=== PATIENT | male | born 1970 | race Caucasian/White ===

== ENCOUNTER 2019-07-04 00:33 | Observation (INO) | payer SELFPAY ==
[~2019-07-04] VITALS: Ht 172.7 cm; Wt 72.4 kg
[2019-07-04] MEDS ORDERED: MULTIVITAMINS- 12 INJECTION 10 ML, FOLIC ACID MDV 5 MG, THIAMINE HCL INJ 100 MG in SODI... IV ONE (00:45)
[2019-07-04] MEDS ORDERED: SODIUM CHLORIDE 0.9% 1000ML 1,000 ML IV ONE (01:00)
[2019-07-04] MEDS ORDERED: CEFTRIAXONE SOD 500 MG VIAL IM ONE (01:15)
[2019-07-04 01:23] LABS: BASOPHILS % 0.1 % (0.0-1.0); EOSINOPHILS # (AUTO) 0.1 (0.0-0.4); EOSINOPHILS % 0.4 % (0.0-6.0); HEMATOCRIT 41.4 % (38.2-49.6); HEMOGLOBIN 15.4 g/dL (14.0-18.0); LYMPHOCYTES # (AUTO) 2.4 (1.0-3.2); LYMPHOCYTES % 17.1 % (18.0-39.1); MEAN CORPUSCULAR HGB CONC 37.2 g/dL (31-35); MEAN CORPUSCULAR VOLUME 88.7 fL (81-99); MONOCYTES # (AUTO) 1.3 (0.2-0.8); MONOCYTES % 9.2 % (4.4-11.3); NEUTROPHILS # (AUTO) 10.1 (2.1-6.9); NEUTROPHILS % 72.7 % (38.7-80.0); PLATELET COUNT 212 x10e3/uL (140-360); RED BLOOD COUNT 4.67 x10e6/uL (4.3-5.7)
[2019-07-04 01:45] LABS: PARTIAL THROMBOPLASTIN TIME 23.5 seconds (23.8-35.5); PROTHROMBIN TIME 13.4 seconds (11.9-14.5)
[2019-07-04 01:50] LABS: INFLUENZAE A&B ANTIGEN (RAPID) NEGATIVE (NEGATIVE); STREPTOCOCCUS GRP A ANTIGEN POSITIVE (NEGATIVE)
[2019-07-04 01:52] LABS: ALANINE AMINOTRANSFERASE 68 IU/L (0-55); ALBUMIN 3.5 g/dL (3.5-5.0); ALBUMIN/GLOBULIN RATIO 1.5 (0.8-2.0); ALKALINE PHOSPHATASE 54 IU/L (40-150); ANION GAP 19.4 mmol/L (8-16); BLOOD UREA NITROGEN 13 mg/dL (7-26); BUN/CREATININE RATIO 12 (6-25); CALCIUM 8.5 mg/dL (8.4-10.2); CARBON DIOXIDE 29 mmol/L (22-29); CHLORIDE 86 mmol/L (98-107); CREATINE KINASE 229 IU/L (30-200); EST GLOMERULAR FILTRATION RATE > 60 ML/MIN (60-); GLUCOSE 111 mg/dL (74-118); POTASSIUM 2.4 mmol/L (3.5-5.1); SODIUM 132 mmol/L (136-145)
[2019-07-04] MEDS ORDERED: POTASSIUM CHLORIDE 20MEQ/100ML 100 ML IV STA (01:52)
[2019-07-04] MEDS ORDERED: POTASSIUM CHLORIDE 20 MEQ TAB CR PO STA (01:52)
--- NOTE | 2019-07-04 01:56 | Diagnostic Imaging Report ---
Examination: CT head without contrast Clinical Indication: Fall with head injury. Technique: Transaxial noncontrast images from the skull base through the vertex were obtained. Sagittal and coronal reformatted images were done. Dose modulation, iterative reconstruction, and/or weight based adjustment of the mA/kV was utilized to reduce the radiation dose to as low as reasonably achievable. Comparison: None. Findings: Scalp: No abnormalities. Bones: Intact. No fractures. No blastic or lytic lesions. Brain sulci: Appropriate for patient's age. Ventricles: Normal in size and configuration. No hydrocephalus. Extra-axial space: No abnormalities. Parenchyma: No masses, hemorrhage, or acute or chronic cortical based vascular insults. Suprasellar region: No abnormalities. Craniocervical junction: The foramen magnum is patent. No Chiari one malformation. Impression: No intracranial abnormality. Signed by: Dr. Zahida Baker M.D. on 07/04/2019 1:53 AM
[2019-07-04] MEDS ORDERED: ONDANSETRON HCL INJ 2MG/ML 2ML 2 MG/ML VIAL IV STA (01:57)
--- NOTE | 2019-07-04 01:59 | Diagnostic Imaging Report ---
Examination: CT CERVICAL SPINE WO CONTRAST HISTORY:Neck injury after fall. COMPARISON:None. TECHNIQUE: Multidetector helical axial images were obtained without contrast from the foramen magnum to T1. Coronal and sagittal reformatted images were done. Bone and soft tissue windows were evaluated. Dose modulation, iterative reconstruction, and/or weight based adjustment of the mA/kV was utilized to reduce the radiation dose to as low as reasonably achievable. FINDINGS: Alignment:Normal alignment and lordosis. Vertebrae: Normal height and density. No acute fracture, infection or neoplasm. Disc space heights: Normal height. Caliber of spinal canal: Developmentally normal. Posterior fossa and craniocervical junction: Foramen magnum patent. No Chiari 1 malformation. Soft tissues: No abnormality. Degenerative changes: Severe right foraminal narrowing at C4-C5. Severe right facet arthropathy at C2-C3 No disc bulge/ herniation or canal stenosis. Visualized lung apices: No abnormalities. IMPRESSION: No acute abnormalities. Signed by: Dr. Zahida Baker M.D. on 07/04/2019 1:56 AM
--- NOTE | 2019-07-04 02:14 | Diagnostic Imaging Report ---
EXAMINATION: CHEST SINGLE (PORTABLE) INDICATION: Status post fall. COMPARISON: None FINDINGS: TUBES and LINES: None. LUNGS: Lungs are well inflated. Lungs are clear. There is no evidence of pneumonia or pulmonary edema. PLEURA: No pleural effusion or pneumothorax. HEART AND MEDIASTINUM: The cardiomediastinal silhouette is unremarkable. BONES AND SOFT TISSUES: There is marked deformity of the posterior left left sixth rib consistent with comminuted fracture of uncertain age. There is also evidence of remote healed fracture of the posterolateral left femoral rib. Abnormal appearance of the posterior left ninth and 10th ribs may reflect artifact. UPPER ABDOMEN: No free air under the diaphragm. IMPRESSION: Comminuted fracture of the left posterior sixth rib of uncertain age. Correlate for mid left posterior thoracic pain/tenderness. Signed by: Dr. Yaron Forbes M.D. on 07/04/2019 2:11 AM
[2019-07-04] MEDS ORDERED: PENICILLIN G BENZATHINE LA 1.2 MU TBX IM STA (02:36)
[2019-07-04] MEDS ORDERED: SODIUM CHLORIDE 0.9% 250ML 250 ML ONE ×2 (02:46→17:17)
[2019-07-04] MEDS ORDERED: ONDANSETRON HCL INJ 2MG/ML 2ML 2 MG/ML VIAL IV PRN (04:30)
[2019-07-04] MEDS ORDERED: KCL 20MEQ/.9 SOD CHL 1,000 ML IV ONE (04:30)
--- OUTSIDE RECORDS SUMMARY | 2019-07-04 04:33 | XMS REPORT ---
Author Author [facility] Address Unknown Phone Unavailable Care Team Providers Care Clinical Microbiologist Name Role Phone Blu MTZ Unavailable Unavailable Problems This patient has no known problems. Allergies, Adverse Reactions, Alerts This patient has no known allergies or adverse reactions. Medications This patient has no known medications. Results Test Description Test Time Test Comments Text Results Atomic Results Result Comments CHEST SINGLE (PORTABLE) 2019-07-04 02:03:00 [facility] [address] [address] Patient Name: RUBIO LA MR #: [id number] : 1970 Age/Sex: 48/M Req #: [id number] Adm Physician: Ordered by: PRANAV MTZ MD Report #: [id number] Location: ER Room/Bed: Procedure: [id number] DX/CHEST SINGLE (PORTABLE) Exam Date: Exam Time: REPORT STATUS: Signed EXAMINATION: CHEST SINGLE (PORTABLE) INDICATION: Status post fall. COMPARISON: None FINDINGS: TUBES and LINES: None. LUNGS: Lungs are well inflated. Lungs are clear. There is no evidence of pneumonia or pulmonary edema. PLEURA: No pleural effusion or pneumothorax. HEART AND MEDIASTINUM: The cardiomediastinal silhouette is unremarkable. BONES AND SOFT TISSUES: There is marked deformity of the posterior left left sixth rib consistent with comminuted fracture of uncertain age. There is also evidence of remote healed fracture of the posterolateral left femoral rib. Abnormal appearance of the posterior left ninth and 10th ribs may reflect artifact. UPPER ABDOMEN: No free air under the diaphragm. IMPRESSION: Comminuted fracture of the left posterior sixth rib of uncertain age. Correlate for mid left posterior thoracic pain/tenderness. Signed by: Dr. Yaron Thakur M.D. on 07/04/2019 2:11 AM Dictated By: CHELSIE THAKUR MD, MD 0 Transcribed By: ELZBIETA on 07/04/19210 COPY TO: PRANAV MTZ MD CT CERVICAL SPINE WO 2019-07-04 01:53:00 [address] [place] [address] Patient Name: RUBIO LA MR #: [id number] : 1970 Age/Sex: 48/M Req #: [id number] Adm Physician: Ordered by: PRANAV MTZ MD Report #: [id number] Location: ER Room/Bed: Procedure: [id number] CT/CT CERVICAL SPINE WO Exam Date: Exam Time: REPORT STATUS: Signed Examination: CT CERVICAL SPINE WO CONTRAST HISTORY:Neck injury after fall. COMPARISON:None. TECHNIQUE: Multidetector helical axial images were obtained without contrast from the foramen magnum to T1. Coronal and sagittal reformatted images were done. Bone and soft tissue windows were evaluated. Dose modulation, iterative reconstruction, and/or weight based adjustment of the mA/kV was utilized to reduce the radiation dose to as low as reasonably achievable. FINDINGS: Alignment:Normal alignment and lordosis. Vertebrae: Normal height and density. No acute fracture, infection or neoplasm. Disc space heights: Normal height. Caliber of spinal canal: Developmentally normal. Posterior fossa and craniocervical junction: Foramen magnum patent. No Chiari 1 malformation. Soft tissues: No abnormality. Degenerative changes: Severe right foraminal narrowing at C4-C5. Severe right facet arthropathy at C2-C3 No disc bulge/ herniation or canal stenosis. Visualized lung apices: No abnormalities. IMPRESSION: No acute abnormalities. Signed by: Dr. Zahida Baker M.D. on 07/04/2019 1:56 AM Dictated By: ZAHIDA ALVARADO MD 5 Transcribed By: ELZBIETA on 07/04/19155 COPY TO: PRANAV MTZ MD CT BRAIN WO 2019-07-04 01:52:00 [place] [address] Patient Name: RUBIO LA MR #: [id number] : 1970 Age/Sex: 48/M Req #: [id number] Adm Physician: Ordered by: PRANAV MTZ MD Report #: [id number] Location: ER Room/Bed: Procedure: [id number] CT/CT BRAIN WO Exam Date: Exam Time: REPORT STATUS: Signed Examination: CT head without contrast Clinical Indication: Fall with head injury. Technique: Transaxial noncontrast images from the skull base through the vertex were obtained. Sagittal and coronal reformatted images were done. Dose modulation, iterative reconstruction, and/or weight based adjustment of the mA/kV was utilized to reduce the radiation dose to as low as reasonably achievable. Comparison: None. Findings: Scalp: No abnormalities. Bones: Intact. No fractures. No blastic or lytic lesions. Brain sulci: Appropriate for patient's age. Ventricles: Normal in size and configuration. No hydrocephalus. Extra-axial space: No abnormalities. Parenchyma: No masses, hemorrhage, or acute or chronic cortical based vascular insults. Suprasellar region: No abnormalities. Craniocervical junction: The foramen magnum is patent. No Chiari one malformation. Impression: No intracranial abnormality. Signed by: Dr. Zahida Baker M.D. on 07/04/2019 1:53 AM Dictated By: ZAHIDA ALVARADO MD 2 Transcribed By: ELZBIETA on 07/04/19152 COPY TO: PRANAV MTZ MD
[2019-07-04] MEDS: CHLORDIAZEPOXIDE HCL 25 MG CAP PO SCH ×4 (05:02→23:26)
[2019-07-04] MEDS: CEFTRIAXONE SOD 1 GM VIAL IV SCH (05:02)
[2019-07-04 05:46] LABS: CLARITY,URINE CLEAR (CLEAR); COLOR,URINE YELLOW (YELLOW); LEUKOCYTE ESTERASE ,URINE NEGATIVE (NEGATIVE)
[2019-07-04 05:47] LABS: AMPHETAMINES SCREEN,URINE NEGATIVE (NEGATIVE); BENZODIAZEPINES SCREEN,URINE NEGATIVE (NEGATIVE); KETONES,URINE NEGATIVE (NEGATIVE); NITRITE,URINE NEGATIVE (NEGATIVE); PHENCYCLIDINE SCREEN,URINE NEGATIVE (NEGATIVE); PROTEIN,URINE DIPSTICK 1+ (NEGATIVE); URINE UROBILINOGEN 0.2 mg/dL (0.2 - 1)
[2019-07-04 05:48] LABS: BACTERIA,URINE RARE /HPF; BILIRUBIN,URINE NEGATIVE (NEGATIVE); EPITHELIAL CELLS,URINE FEW /LPF; RBC,URINE 0-5 /HPF (0-5); WBC,URINE (MAN) 0-5 /HPF (0-5)
--- NOTE | 2019-07-04 06:37 | History and Physical ---
REASON FOR ADMISSION: 1. Alcohol abuse. 2. Possible delirium tremens. 3. Hypokalemia. 4. Dehydration. 5. Leukocytosis. 6. Strep throat. HISTORY OF PRESENT ILLNESS: The patient is a 48-year-old gentleman, long-time daily ethanol drinker, who decided about four days ago to quit due to the upcoming job, who then presents with a few day history of nausea, vomiting, decreased p.o. intake, and sore throat. He was noted to have a fall, as he was throwing up and therefore he presented to the emergency room, where he was found to be hypokalemic, dehydrated, and positive for strep throat, so he has been admitted for further evaluation and treatment. PAST MEDICAL HISTORY: Alcohol abuse. MEDICATIONS: See JUL. ALLERGIES: NONE. SOCIAL HISTORY: Daily drinker. Denies IV drug abuse. . FAMILY HISTORY: Alcohol abuse. PHYSICAL EXAMINATION: VITAL SIGNS: Temperature 98.6, pulse is 96, blood pressure 136/70, sats 96% on room air. GENERAL: He is in no apparent distress, lying in bed. HEENT: He has a small abrasion above his nose. NECK: Supple. CARDIOVASCULAR: Regular rate and rhythm. LUNGS: Clear to auscultation bilaterally. ABDOMEN: Good bowel sounds. Soft, nontender. No peritoneal signs. EXTREMITIES: No clubbing, cyanosis. NEUROLOGIC: He moves all extremities x4. He is alert, oriented x3. Does not show any evidence of delirium tremens at this time. ASSESSMENT AND PLAN: 1. Alcohol abuse. The patient states his last drink was four days ago, so high risk obviously for delirium tremens, so he is on Librium. He is on IV fluids. He is on a banana bag. 2. Hypokalemia. We will continue to monitor as we replace. 3. Dehydration. Continue with IV fluids. 4. Leukocytosis. We will continue to monitor. 5. Elevated liver function tests. We will also continue to monitor. 6. Strep throat. We will continue with Rocephin. Please see hospital chart for details. MD NNEKA Mccollum/CHAGO /[id number]
[2019-07-04 08:00] VITALS: BP 130/93
[2019-07-04] MEDS: METOPROLOL TARTRATE 25 MG TAB PO SCH ×3 (08:00→20:55)
[2019-07-04] MEDS: PANTOPRAZOLE 40 MG 10ML VIAL IV SCH (09:57)
[2019-07-04 12:00] VITALS: BP 133/85
[2019-07-04 13:55] LABS: BASOPHILS % 0.1 % (0.0-1.0); EOSINOPHILS # (AUTO) 0.1 (0.0-0.4); EOSINOPHILS % 0.6 % (0.0-6.0); HEMOGLOBIN 13.3 g/dL (14.0-18.0); LYMPHOCYTES # (AUTO) 2.2 (1.0-3.2); LYMPHOCYTES % 15.1 % (18.0-39.1); MEAN CORPUSCULAR HEMOGLOBIN 32.6 pg (28-32); MEAN CORPUSCULAR VOLUME 93.1 fL (81-99); MONOCYTES # (AUTO) 1.1 (0.2-0.8); MONOCYTES % 7.8 % (4.4-11.3); NEUTROPHILS # (AUTO) 11.2 (2.1-6.9); PLATELET COUNT 178 x10e3/uL (140-360); RED BLOOD COUNT 4.08 x10e6/uL (4.3-5.7); RED CELL DISTRIBUTION WIDTH 14.4 % (11.7-14.4)
[2019-07-04] MEDS: MAGNESIUM SULF 1GRAM/DEXTROSE 100 ML IV SCH ×4 (14:16→20:49)
[2019-07-04 14:22] LABS: ALANINE AMINOTRANSFERASE 61 IU/L (0-55); ALBUMIN 3.1 g/dL (3.5-5.0); ALBUMIN/GLOBULIN RATIO 1.3 (0.8-2.0); ALKALINE PHOSPHATASE 44 IU/L (40-150); ANION GAP 12.3 mmol/L (8-16); BLOOD UREA NITROGEN 12 mg/dL (7-26); BUN/CREATININE RATIO 14 (6-25); CALCIUM 7.6 mg/dL (8.4-10.2); CARBON DIOXIDE 27 mmol/L (22-29); CHLORIDE 98 mmol/L (98-107); CREATINE KINASE 188 IU/L (30-200); CREATININE, SERUM 0.85 mg/dL (0.72-1.25); EST GLOMERULAR FILTRATION RATE > 60 ML/MIN (60-); GLUCOSE 98 mg/dL (74-118); POTASSIUM 3.3 mmol/L (3.5-5.1); SODIUM 134 mmol/L (136-145)
[2019-07-04 16:00] VITALS: BP 111/84
[2019-07-04] MEDS ORDERED: POTASSIUM CHLORIDE 20 MEQ TAB CR PO NR ×3 (16:30→19:00)
--- NOTE | 2019-07-04 18:50 | Consultation ---
DATE OF CONSULTATION: 07/04/2019 Cardiac Consultation/Short Note HISTORY OF PRESENT ILLNESS: This is a 48-year-old man with a history of alcohol abuse, who presented after syncopal episode and fall after being intoxicated. No chest pain, palpitations, or shortness of breath. REVIEW OF SYSTEMS: A 12-point review of system was conducted, is negative except as stated above in the HPI. PAST MEDICAL HISTORY: As stated above in the HPI. PAST SURGICAL HISTORY: None recent. ALLERGIES: SEE MEDICATION AND ALLERGY CHART. MEDICATIONS: See chart. PAST FAMILY HISTORY: Noncontributory to present illness. PHYSICAL EXAMINATION: VITAL SIGNS: Stable. GENERAL: Chronically ill-appearing man, in no apparent distress. Alert and oriented x3. HEAD: Normocephalic. There is trauma over the nose bridge. NECK: No JVD. No bruits. CARDIOVASCULAR: Regular rate and rhythm with ectopy. No murmurs. LUNGS: Clear to auscultation. No wheezing or rales. ABDOMEN: Soft, nontender, and nondistended. EXTREMITIES: No clubbing, cyanosis, or edema. VASCULAR: 2+ pulses. SKIN: Warm, dry, and intact. NEUROLOGIC: No focal deficits noted. LABORATORY DATA: Reviewed. Magnesium 1.1, potassium 3.3, and creatinine 0.8. Normal troponin. Normal BNP. TELEMETRY: Monitoring revealed normal sinus rhythm with nonsustained ventricular tachycardia and episodes of supraventricular tachycardia. IMPRESSION: 1. Alcohol abuse. 2. Hypokalemia. 3. Hypomagnesemia. 4. Fall with syncope. 5. Nonsustained ventricular tachycardia. 6. Supraventricular tachycardia. RECOMMENDATIONS: Continue aggressive electrolyte replacement. Replace for magnesium greater than 2 and potassium greater than 4. Continue beta blockers and closely monitor on telemetry. His echocardiogram showed normal left ventricular systolic function. Rule out for acute myocardial infarction. We will continue to follow along with you. DO ANGIE Garces/MODL /[id number]
[2019-07-04 20:00] VITALS: BP 115/78
[2019-07-04 23:42] VITALS: BP 115/78
[2019-07-05] VITALS (7 sets, daily range): BP systolic 102–134; BP diastolic 72–95
[2019-07-05] MEDS ORDERED: SODIUM CHLORIDE 0.9% 100 ML ONE (04:13)
[2019-07-05] MEDS: CEFTRIAXONE SOD 1 GM VIAL IV SCH (04:35)
[2019-07-05] MEDS: CHLORDIAZEPOXIDE HCL 25 MG CAP PO SCH ×2 (05:34→11:05)
[2019-07-05] MEDS: METOPROLOL TARTRATE 25 MG TAB PO SCH ×2 (05:35→13:15)
[2019-07-05 05:46] LABS: BASOPHILS % 0.2 % (0.0-1.0); EOSINOPHILS # (AUTO) 0.3 (0.0-0.4); HEMATOCRIT 39.1 % (38.2-49.6); HEMOGLOBIN 13.4 g/dL (14.0-18.0); LYMPHOCYTES % 15.7 % (18.0-39.1); MEAN CORPUSCULAR HEMOGLOBIN 32.4 pg (28-32); MEAN CORPUSCULAR HGB CONC 34.3 g/dL (31-35); MEAN CORPUSCULAR VOLUME 94.7 fL (81-99); MONOCYTES % 7.9 % (4.4-11.3); NEUTROPHILS # (AUTO) 9.2 (2.1-6.9); NEUTROPHILS % 73.6 % (38.7-80.0); PLATELET COUNT 168 x10e3/uL (140-360); RED BLOOD COUNT 4.13 x10e6/uL (4.3-5.7); RED CELL DISTRIBUTION WIDTH 14.1 % (11.7-14.4)
[2019-07-05 06:06] LABS: ALANINE AMINOTRANSFERASE 77 IU/L (0-55); ALBUMIN 3.1 g/dL (3.5-5.0); ALBUMIN/GLOBULIN RATIO 1.2 (0.8-2.0); ALKALINE PHOSPHATASE 58 IU/L (40-150); ANION GAP 12.5 mmol/L (8-16); BLOOD UREA NITROGEN 10 mg/dL (7-26); BUN/CREATININE RATIO 12 (6-25); CARBON DIOXIDE 27 mmol/L (22-29); CHLORIDE 100 mmol/L (98-107); CREATININE, SERUM 0.83 mg/dL (0.72-1.25); EST GLOMERULAR FILTRATION RATE > 60 ML/MIN (60-); GLUCOSE 99 mg/dL (74-118); POTASSIUM 3.5 mmol/L (3.5-5.1); SODIUM 136 mmol/L (136-145)
[2019-07-05] MEDS: PANTOPRAZOLE 40 MG 10ML VIAL IV SCH (09:20)
[2019-07-05] MEDS ORDERED: POTASSIUM CHLORIDE 20 MEQ TAB CR PO ONE (11:15)
== END 2019-07-05 17:05 | disposition home or self-care (01) ==
LOC: ER 00:33 → ERHOLD 04:30 → MED/SURG3 04:43
PROVIDERS: ADMIT Internal Medicine; ATTEND Internal Medicine
DX: E87.6 Hypokalemia (principal); S01.81XA Laceration without foreign body of other part of head, initial encounter; S00.31XA Abrasion of nose, initial encounter; F10.10 Alcohol abuse, uncomplicated; E86.9 Volume depletion, unspecified; W01.0XXA Fall on same level from slipping, tripping and stumbling without subsequent striking against object, initial encounter; Y93.89 Activity, other specified; Y92.012 Bathroom of single-family (private) house as the place of occurrence of the external cause; F17.210 Nicotine dependence, cigarettes, uncomplicated; Z72.89 Other problems related to lifestyle; J02.0 Streptococcal pharyngitis; E83.42 Hypomagnesemia; I47.1 Supraventricular tachycardia
CPT/HCPCS: 36415; 70450; 71045; 72125; 80053; 80307; 80320; 81001; 82150; 82550; 82553; 83518; 83690; 83735; 83880; 84484; 85025; 85610; 85730; 87400; 93306; 99284; G0378; J0561; J0696; J2405; J3411; J3475; J3480; J7030; J7050